=== PATIENT | female | born 1965 | race Caucasian/White ===

== ENCOUNTER 2018-07-30 09:18 | Emergency (ER) | payer MEDICAID ==
[~2018-07-30] VITALS: Ht 160 cm; Wt 65.8 kg
[2018-07-30 09:22] VITALS: BP_SYST 107
[2018-07-30] MEDS ORDERED: LIP10 GT (09:39)
[2018-07-30] MEDS ORDERED: AMLO5TAB4 GT (09:39)
[2018-07-30 10:23] VITALS: BP_SYST 107
== END 2018-07-30 10:23 | disposition home or self-care (01) ==
LOC: SED 09:18
DX: L02.412 Cutaneous abscess of left axilla (principal); E03.9 Hypothyroidism, unspecified; I10 Essential (primary) hypertension; Z85.841 Personal history of malignant neoplasm of brain
CPT/HCPCS: 99283